=== PATIENT | female | born 1955 | race Caucasian/White ===

== ENCOUNTER 2023-06-20 21:38 | Emergency (ER) | payer MEDICARE, SELFPAY ==
[2023-06-20 21:46] VITALS: BP 104/59; PULSE 81; RESP 18; TEMP 36.7; O2SAT 96; BMI 30.1
--- NOTE | 2023-06-20 23:12 | XRR_ITS ---
PROCEDURE INFORMATION: Exam: XR Lumbosacral Spine Exam date and time: 06/20/2023 11:16 PM Age: 68 years old Clinical indication: Lumbago with sciatica; Patient HX: C/O low back pain radiating down left leg after falling out of bed yesterday. History of siatica. TECHNIQUE: Imaging protocol: Radiologic exam of the lumbosacral spine. Views: 2 or 3 views. Including flexion and extension views. COMPARISON: No relevant prior studies available. FINDINGS: Bones/joints: Low density bone consistent with osteopenia/osteoporosis. Vgnx-cc-[id number] L5-S1 degenerative disc disease and spondylosis. 1 mm anterior spondylolisthesis of L4 on L5. Soft tissues: Unremarkable. XR/XR lumbar spine f/e only [id number] IMPRESSION: 1. Low density bone consistent with osteopenia/osteoporosis. 2. Zfpe-dk-[id number] L5-S1 degenerative disc disease and spondylosis. 3. 1 mm anterior spondylolisthesis of L4 on L5. 4. No instability with flexion and extension.
[2023-06-20] MEDS: ketorolac 30 mg/mL INJ IM (23:20)
[2023-06-20] MEDS: orphenadrine 30 mg/mL Inj 2 mL 60 MG IM (23:21)
[2023-06-20] MEDS: dexamethasone 10 mg/mL INJ IM (23:23)
--- NOTE | 2023-06-20 23:54 | ED_ITS ---
HPI - Back Pain/Injury General: Chief Complaint: Back Pain/Injury Stated Complaint: lower back/leg pain Time Seen by Provider: 06/20/23 22:01 History of Present Illness: Patient is a 68-year-old female that presents to the emergency department with complaints of lumbar back pain radiating into the left buttock and painful urination. Patient states that she recently took a long road trip in which she sat in a car for 11 hours a day. She reports symptoms were slow onset and denies an abrupt event that elicited. Patient has a history of back pain and sciatica and has had a previous UTI which felt similar to what she has now Review of Systems General: Reports: 10 or more systems reviewed and unremarkable except in HPI and below Physical Exam Const: COMMON NORMALS: no acute distress, patient oriented x3 and alert GENERAL APPEARANCE: cooperative ORIENTATION/CONSCIOUSNESS: Yes awake, Yes oriented to person, Yes oriented to place and Yes oriented to time Neck/C-Spine: COMMON NORMALS: full ROM GENERAL: Yes normal visual inspection Lymph: LYMPHATIC: no lymphadenopathy noted Chest: COMMONS NORMALS: normal inspection of the chest Breast/axilla inspection: Yes no chest deformity, asymmetry, normal contours, no nodules, mass es, tenderness Resp: COMMON NORMALS: normal respiratory effort, No retractions and No use of accessory muscles EFFORT & INSPECTION: Yes able to speak in complete sentences and Yes symmetric chest movement Cardio: COMMON NORMALS: regular rate and Peripheral pulses 2+ throughout RATE: regular rate PERIPHERAL PULSES: Peripheral pulses 2+ throughout GI: COMMON NORMALS: Soft to palpation, non-tender and No hepatosplenomegaly present INSPECTION: Yes normal to inspection PALPATION: Yes Soft to palpation and Yes No hepatosplenomegaly present Extremity: COMMON NORMALS: normal to inspection GENERAL: Yes normal exam except as noted Neuro: COMMON NORMALS: patient oriented x3 SENSORIUM/ORIENTATION: Yes alert, Yes oriented to person, Yes oriented to place and Yes oriented to time CRANIAL NERVES: Yes CN normal except as noted Psych: COMMON NORMALS: mental status grossly normal, Normal thought process present, cooperative, activity/motor behavior normal, denies homicidal ideation and denies suicidal ideation THOUGHT PROCESS: Normal thought process present Skin: COMMON NORMALS: no rashes or lesions noted, no wounds and turgor normal GENERAL SKIN EXAM: no rashes or lesions noted and turgor normal Course Vital Signs: Vital signs: Vital Signs Temperature 98.0 F 06/20/23 21:46 Pulse Rate 81 06/20/23 21:46 Respiratory Rate 18 06/20/23 21:46 Blood Pressure 104/59 06/20/23 21:46 Pulse Oximetry 96 06/20/23 21:46 Oxygen Delivery Me thod Room Air 06/20/23 21:46 MDM - Back Pain/Injury Medical Decision Making Patient is a 68-year-old female that presents to the emergency department with lumbar back pain that radiates into the left buttock. Onset of symptoms in the last 3 days traveling to see them back. Differential diagnosis lumbar strain, radiculopathy, urinary tract infection. She underwent urinalysis and XR lumbar spine flexion extension. XR lumbar spine reveals mild to moderate L5-S1 degenerative changes with spondylosis and approximately 1 mm anterolisthesis of L4 on L5. There is no dynamic instability. Urinalysis reveals Trace leukoesterase but there was contaminant and no nitrate, bacteria. Patient's pain did improve with the medication provided. Going to discharge her home with lumbar strain and sciatica. She will go home with Robaxin and a Medrol Dosepak. Patient should follow-up with primary care and return here as needed for new concerning or worsening symptoms Labs Radiology Impressions Lumbar Spine X-Ray 06/20/23 23:12 IMPRESSION: 1. Low density bone consistent with osteopenia/osteoporosis. 2. Zojh-eu-[id number] L5-S1 degenerative disc disease and spondylosis. 3. 1 mm anterior spondylolisthesis of L4 on L5. 4. No instability with flexion and extension. Laboratory Results Urine Color Yellow (Yellow) 06/21/23 00:00 Urine Appearance Clear (CLEAR) 06/21/23 00:00 Urine pH 5 (5-7) 06/21/23 00:00 Ur Specific [place] 1.025 (1.005-1.030) 06/21/23 00:00 Urine Protein Trace (Negative) 06/21/23 00:00 Urine Glucose (UA) Norm (Normal) 06/21/23 00:00 Urine Ketones 1+ (Negative) H 06/21/23 00:00 Urine Blood 3+ (Negative) H 06/21/23 00:00 Urine Nitrate Negative (Negative) 06/21/23 00:00 Urine Bilirubin Neg (Negative) 06/21/23 00:00 Urine Urobilinogen Neg mg/dL (Negative) 06/21/23 00:00 Ur Leukocyte Esterase Trace (Negative) H 06/21/23 00:00 Urine RBC 5-10 /hpf (0-2) H 06/21/23 00:00 Urine WBC 5-10 /hpf (0-5) H 06/21/23 00:00 Ur Squamous Epith Cells 5-10 /hpf (0-5) H 06/21/23 00:00 Amorphous Sediment Not Reportable 06/21/23 00:00 Urine Bacteria None /hpf (NONE) 06/21/23 00:00 All radiology interpretation(s) finalized by discharge Discharge Plan Discharge Patient Disposition: Home Clinical Impression: Strain of lumbar region, Sciatica Condition: Stable Prescriptions: New methocarbamol 500 mg tablet 1,000 mg PO Q6H PRN (Reason: muscle spasm) Qty: 30 0RF methylprednisolone [Medrol (Zac)] 4 mg tablets,dose pack See Rx Instructions .ROUTE .COMPLEX Qty: 21 0RF Rx Instructions: orally per package directions Discharge Orders: Discharge ED (Routine); Ordered 06/21/23 Ordered By: Mitchell Rizzo Discharge Diet: Advance as tolerated Discharge Activity: Resume usual activity Patient Instructions: Low Back Strain (ED), Lower Back Exercises (ED), Core Strengthening Exercises (ED), Pain Management Activity Restrictions/Additional Instructions: Please return to the emergency department for new concerning or worsening symptoms Coding Level of Care Code ED Statistical Machine Servicer for Danilo Church
[2023-06-21 00:29] LABS: Add Urine Culture? No; Add Urine Microscopic? YES; Bilirubin Urine Neg (Negative); Blood Urine 3+ (Negative); Glucose Urine UA Norm (Normal); Ketones Urine 1+ (Negative); Leukocyte Esterase Urine Trace (Negative); Nitrate Urine Negative (Negative); Protein Urine Trace (Negative); Specific Gravity, Urine 1.025 (1.005-1.030); Urine Appearance Clear (CLEAR); Urine Color Yellow (Yellow); Urobilinogen Urine Neg (Negative); pH Urine 5 (5-7)
[2023-06-21 00:42] VITALS: PULSE 67; RESP 16; O2SAT 92
== END 2023-06-21 00:43 | disposition home or self-care (01) ==
PROVIDERS: Emergency Provider Nurse Practitioner
DX: S39.012A Strain of muscle, fascia and tendon of lower back, initial encounter (principal); M54.30 Sciatica, unspecified side; M43.16 Spondylolisthesis, lumbar region; X50.1XXA Overexertion from prolonged static or awkward postures, initial encounter
CPT/HCPCS: 72120; 81001; 96372; 99284; J1100; J1885; J2360

== ENCOUNTER 2023-06-26 09:07 | Emergency (ER) | payer MEDICARE, SELFPAY ==
[2023-06-26 09:17] VITALS: BP 100/65; PULSE 78; RESP 18; TEMP 36.6; O2SAT 92; BMI 29.2
--- NOTE | 2023-06-26 09:43 | CT_ITS ---
WS: [id number] CT ABDOMEN PELVIS TECHNIQUE: Contrast-enhanced CT of the abdomen and pelvis with coronal and sagittal reformatted image s. CLINICAL INFORMATION: abdominal pain, N/V, UTI like symptoms COMPARISON: None. DLP: 718.[address] scans at [facility] use at least one of these dose optimization techniques: automated e xposure control; mA and/or kV adjustment per patient size (includes targeted exams where dose is matc hed to clinical indication); or iterative reconstruction. FINDINGS: Diffuse wall thickening with mucosal hyperenhancement and surrounding induration involving the duoden al C-loop. Findings compatible with duodenitis. Adjacent pancreas is normal in appearance. Fatty atro phy of the pancreas. Normal portal vein and splenic vein. Mild reactive enhancement involving the gal lbladder which is otherwise normal in appearance. Air-fluid levels in the distal stomach and duodenum . Recommend follow-up with endoscopy. Lung bases are well aerated. Diffuse fatty filtration of the liver. Normal portal vein and splenic ve in. Normal spleen. Normal GE junction. Normal caliber abdominal aorta. Portal vein and splenic vein a re patent. Adrenal glands are normal. Normal renal parenchymal enhancement. No hydronephrosis. LEFT p eripelvic cysts. Normal caliber abdominal aorta. Tortuous sigmoid colon is decompressed. Trace free fluid in the pelvis. Prior hysterectomy. Mild RIGH T colonic constipation. No other suspicious findings. IMPRESSION: 1. Findings compatible with acute duodenitis described above with prominent diffuse duodenal thicken ing with mucosal hyperenhancement and surrounding induration. Recommend follow-up with endoscopy. 2. Prior hysterectomy. 3. Mild RIGHT colon and transverse colon constipation. 4. No other acute findings.
--- NOTE | 2023-06-26 09:44 | W.ED.ABDPA2 ---
HPI - Abdominal Pain General: Chief Complaint: Urogenital-Female Stated Complaint: abd pain, NV Time Seen by Provider: 06/26/23 09:09 Source: patient Mode of arrival: ambulatory Limitations: no limitations History of Present Illness: Patient is a 68-year-old female presents to ED today along with her daughter for evaluation of abdominal pain, nausea, vomiting, UTI-like symptoms. Patient states she began having urinary frequency, urgency, hesitancy about 5 or 6 days ago. She was also having some nausea and vomiting. Patient states she was seen at a walk-in clinic and [place] and told it could just be a stomach bug and was discharged with Zofran. Patient states she later returned a few days later (yesterday) and had a UA performed. Daughter states she was placed on ciprofloxacin, Zofran, omeprazole, and Carafate. She is here today for continued nausea and vomiting as well as abdominal pain. She has has not had any doses of the ciprofloxacin. Patient denies alcohol use or excessive NSAID use. MD elicited complaint: abdominal pain Pertinent past history: none Onset (ago): day(s) Pain Consistency: constant Location: Diffuse Severity: moderate Quality: cramping and dull Radiation: none Migration to: no migration Exacerbating factors: eating Relieving factors: nothing Associated Symptoms: Reports dysuria, nausea, vomiting and other (UTI symptoms); Denies change in bowel habits, chills, fever(s), hematochezia, hematuria, hematemesis and melena Review of Systems Const: Denies: fever(s), chills, body aches, fatigue or malaise Card: Denies: chest pain Resp: Denies: dyspnea GI: Reports: abdominal pain, nausea, vomiting and other (UTI symptoms); Denies: hematemesis, change in bowel habits, hematochezia or melena : Reports: dysuria, urinary frequency and urinary urgency; Denies: flank pain, difficulty voiding, urinary hesitancy, hematuria or pelvic pain Musc: Denies: neck pain, back pain, extremity pain or joint pain Skin/Breast: Denies: rash Neuro: Denies: headache(s), numbness in extremities, weakness in extremities or sensory changes Physical Exam Const: COMMON NORMALS: no acute distress, average body habitus, patient oriented x3, no limitations, healthy appearing, alert and well nourished HENMT: COMMON NORMALS: normocephalic and atraumatic HEAD & SCALP: normal to inspection, normocephalic and atraumatic Eye: COMMON NORMALS: no scleral icterus Neck/C-Spine: COMMON NORMALS: no lymphadenopathy Chest: COMMONS NORMALS: normal inspection of the chest Resp: COMMON NORMALS: normal respiratory effort and clear to auscultation bilaterally AUSCULTATION: clear to auscultation bilaterally Cardio: COMMON NORMALS: regular rate and regular rhythm RATE: regular rate RHYTHM: regular rhythm GI: COMMON NORMALS: Normal to inspection, nondistended, normoactive bowel sounds present, Soft to palpation, No hepatosplenomegaly present and no masses INSPECTION: Yes normal to inspection AUSCULTATION: Yes normoactive bowel sounds PALPATION: Yes Soft to palpation, Yes Tenderness to palpation present (GI) (diffusely but more so across lower abdomen), No Guarding due to palpation present (GI), No Rigid due to palpation and Yes No hepatosplenomegaly present : COMMON NORMALS: Yes no CVA tenderness BLADDER/KIDNEY EXAM: Yes no CVA tenderness Back/Pelvis: COMMON NORMALS: no CVA tenderness, thoracic and lumbar spine normal to inspection, no thoracic nor lumbar tenderness and thoraco-lumbar ROM normal Extremity: COMMON NORMALS: normal to inspection GENERAL: Yes normal exam except as noted Neuro: ALMAS COMA SCALE: document GCS findings Almas coma scale eye opening: Spontaneous Almas coma scale verbal response: Orientated [place]mas coma scale motor response: Obey commands [place] coma scale total score: 15 COMMON NORMALS: patient oriented x3, moves all extremities, no focal motor deficits and no sensory deficits noted SENSORIUM/ORIENTATION: Yes alert Skin: COMMON NORMALS: no rashes or lesions noted GENERAL SKIN EXAM: no rashes or lesions noted Course Vital Signs: Vital signs: Vital Signs Temperature 98 F 06/26/23 09:17 Pulse Rate 78 06/26/23 09:17 Respiratory Rate 18 06/26/23 09:17 Blood Pressure 100/65 06/26/23 09:17 Pulse Oximetry 92 06/26/23 09:17 Oxygen Delivery Me thod Room Air 06/26/23 09:17 MDM - Abdominal Pain Medical Decision Making Patient here for abdominal pain, nausea, vomiting, UTI-like symptoms. This is now her third visit to medical facilities for similar symptoms. CT imaging was obtained because of this. Vital signs are stable. She appears in no acute distress. Blood work overall is unremarkable. UA is suspicious for the UTI that she has previously been diagnosed with 3+ blood, 5-10 WBCs, and 1+ bacteria. This will be cultured. She states [facility] also was culturing the urine from yesterday's visit. CT scan essentially unremarkable apart from acute duodenitis. Recommend follow-up with endoscopy. She has already been prescribed Zofran, PPI, and Carafate. Recommend she continue these medications. Requesting something else for nausea in case the Zofran does not seem to work as this morning she vomited up. We will write her for Tariq. We will have case management set her up with general surgery/GI for evaluation for possible EGD. Strict return ED precautions given. Lab Data 06/26/23 09:38 06/26/23 09:38 Labs/Radiology: Laboratory Results WBC 10.34 10^3/uL (3.29-11.43) 06/26/23 09:38 RBC 5.44 10^6/uL (3.85-5.65) 06/26/23 09:38 Hgb 15.70 g/dL (11.27-16.99) 06/26/23 09:38 Hct 47.2 % (36-47) H 06/26/23 09:38 MCV 86.8 fl (85-98) 06/26/23 09:38 MCH 28.9 pg (27-33) 06/26/23 09:38 MCHC 33.3 g/dL (30-55) 06/26/23 09:38 RDW 13.3 % (12.1-15.1) 06/26/23 09:38 Plt Count 302 10^3/cmm (157-399) 06/26/23 09:38 MPV 9.2 fL (7.4-10.4) 06/26/23 09:38 Neut % (Auto) 74.2 % 06/26/23 09:38 Lymph % (Auto) 15.1 % 06/26/23 09:38 [place] % (Auto) 8.6 % 06/26/23 09:38 Eos % (Auto) 0.7 % 06/26/23 09:38 Baso % (Auto) 0.4 % 06/26/23 09:38 Neut # (Auto) 7.68 10^3/uL (1.8-7.7) 06/26/23 09:38 Lymph # (Auto) 1.6 10^3/uL (0.8-4.8) 06/26/23 09:38 [place] # (Auto) 0.9 10^3/uL (0.2-0.9) 06/26/23 09:38 Eos # (Auto) 0.1 10^3/uL (0.0-0.8) 06/26/23 09:38 Baso # (Auto) 0.0 10^3/uL (0.0-0.1) 06/26/23 09:38 Nucleated RBC % (auto) 0 % 06/26/23 09:38 Nucleated RBCs # 0.0 /100WBC 06/26/23 09:38 Sodium 135 mmol/L (136-145) L 06/26/23 09:38 Potassium 4.2 mmol/L (3.5-5.1) 06/26/23 09:38 Chloride 100 mmol/L (98-107) 06/26/23 09:38 Carbon Dioxide 26 mmol/L (22-29) 06/26/23 09:38 Anion Gap 13.2 (5-19) 06/26/23 09:38 BUN 15 mg/dL (8-23) 06/26/23 09:38 Creatinine 0.9 mg/dL (0.5-0.9) 06/26/23 09:38 GFR Calculation 62.3 mL/min (90-130) L 06/26/23 09:38 Glucose 132 mg/dL (65-115) H 06/26/23 09:38 Calculated Osmolality 283 mOsm/kg (285-295) L 06/26/23 09:38 Calcium 10.4 mg/dL (8.5-10.5) 06/26/23 09:38 Total Bilirubin 1.0 mg/dL (0.15-1.2) 06/26/23 09:38 AST 9 U/L (0-32) 06/26/23 09:38 ALT 10 U/L (0-33) 06/26/23 09:38 Alkaline Phosphatase 111 U/L (35-105) H 06/26/23 09:38 Total Protein 6.8 g/dL (6.6-8.7) 06/26/23 09:38 Albumin 3.9 g/dL (3.5-5.2) 06/26/23 09:38 Globulin 2.9 g/dL (1.3-4.6) 06/26/23 09:38 Lipase 17 U/L (13-60) 06/26/23 09:38 Urine Color Yellow (Yellow) 06/26/23 09:53 Urine Appearance Clear (CLEAR) 06/26/23 09:53 Urine pH 5 (5-7) 06/26/23 09:53 Ur Specific [place] 1.020 (1.005-1.030) 06/26/23 09:53 Urine Protein Trace (Negative) 06/26/23 09:53 Urine Glucose (UA) Norm (Normal) 06/26/23 09:53 Urine Ketones 1+ (Negative) H 06/26/23 09:53 Urine Blood 3+ (Negative) H 06/26/23 09:53 Urine Nitrate Negative (Negative) 06/26/23 09:53 Urine Bilirubin Neg (Negative) 06/26/23 09:53 Urine Urobilinogen Neg mg/dL (Negative) 06/26/23 09:53 Ur Leukocyte Esterase 1+ (Negative) H 06/26/23 09:53 Urine RBC 5-10 /hpf (0-2) H 06/26/23 09:53 Urine WBC 5-10 /hpf (0-5) H 06/26/23 09:53 Ur Squamous Epith Cells 0-4 /hpf (0-5) H 06/26/23 09:53 Amorphous Sediment Not Reportable 06/26/23 09:53 Urine Bacteria 1+ /hpf (NONE) H 06/26/23 09:53 Urine Mucus 1+ /hpf 06/26/23 09:53 All radiology interpretation(s) finalized by discharge Discharge Plan Discharge Patient Disposition: Home Clinical Impression: Duodenitis Urinary tract infection Qualifiers: Urinary tract infection type: acute cystitis Hematuria presence: with hematuria Qualified Code(s): N30.01 - Acute cystitis with hematuria Condition: Stable Prescriptions: New Reglan 10 mg tablet 10 mg PO Q6H 7 Days Qty: 15 0RF No Action methocarbamol 500 mg tablet 1,000 mg PO Q6H PRN (Reason: muscle spasm) Qty: 30 0RF methylprednisolone [Medrol (Zac)] 4 mg tablets,dose pack See Rx Instructions .ROUTE .COMPLEX Qty: 21 0RF Rx Instructions: orally per package directions Carafate 1 gram Tablet 1 g PO QID Rx Instructions: for 10 days (rx filled 06/25/23) Cipro 500 mg Tablet 500 mg PO Q12H Rx Instructions: for 10 days (rx filled 06/25/23) Tylenol Ex Str Rapid Release 500 mg Tablet 1,000 mg PO Q6H PRN (Reason: Pain) Prilosec 20 mg Capsule,Delayed Release(Dr/Ec) 20 mg PO DAILY Zofran ODT 4 mg Tablet,Disintegrating 4 mg PO Q8H PRN (Reason: Nausea And Vomiting) Discharge Orders: Discharge ED (Routine); Ordered 06/26/23 Ordered By: Juanis Stevens Patient Instructions: Duodenitis (ED) Activity Restrictions/Additional Instructions: As we discussed please follow-up with your primary care provider next week as scheduled. We will get you set up with a GI provider/general surgeon for further evaluation of your duodenitis and possible need for an EGD. Coding Level of Care Code ED [employer] Youth Supervisor for Danilo Church
[2023-06-26 09:46] LABS: Basophils % 0.4 %; Eosinophils # 0.1 10^3/uL (0.0-0.8); Eosinophils % 0.7 %; Hematocrit 47.2 % (36-47); Lymphocytes # 1.6 10^3/uL (0.8-4.8); Lymphocytes % 15.1 %; Mean Corpuscular HGB Conc 33.3 g/dL (30-55); Mean Corpuscular Hemoglobin 28.9 pg (27-33); Mean Corpuscular Volume 86.8 fl (85-98); Mean Platelet Volume 9.2 fL (7.4-10.4); Monocytes # 0.9 10^3/uL (0.2-0.9); Monocytes % 8.6 %; Neutrophils # 7.68 10^3/uL (1.8-7.7); Neutrophils % 74.2 %; Nucleated Red Blood Cells % 0 %; Platelet Count 302 10^3/cmm (157-399); Red Blood Count 5.44 10^6/uL (3.85-5.65); Red Cell Distribution Width 13.3 % (12.1-15.1); White Blood Count 10.34 10^3/uL (3.29-11.43)
[2023-06-26 10:03] LABS: Alanine Aminotransferase 10 U/L (0-33); Albumin Level 3.9 g/dL (3.5-5.2); Alkaline Phosphatase 111 U/L (35-105); Anion Gap 13.2 (5-19); Aspartate Amino Transferase 9 U/L (0-32); Blood Urea Nitrogen 15 mg/dL (8-23); Calcium 10.4 mg/dL (8.5-10.5); Carbon Dioxide 26 mmol/L (22-29); Chloride 100 mmol/L (98-107); Globulin 2.9 g/dL (1.3-4.6); Glomerular Filtration Rate 62.3 mL/min (90-130); Glucose 132 mg/dL (65-115); Lipase 17 U/L (13-60); Osmolality Calculated 283 mOsm/kg (285-295); Potassium 4.2 mmol/L (3.5-5.1); Sodium 135 mmol/L (136-145); Total Protein 6.8 g/dL (6.6-8.7)
--- NOTE | 2023-06-26 10:03 | PC.PHAR ---
pt brought in medication bottles-pt and pts daughter verified pts medications-pts daughter states the pt dced lipitor ext shows last filled 08/12/22 90d/s 40mg hs-pt and pts daughter states the pt stop taking medrol ayanna on 06/23/23 rx written 06/21/23 and robaxin 500mg 1000mg q6h prn stop taking on thursday06/22/23 rx written on 06/21/23-pt states she has no inhalers states she doesnt use it ext shows last filled 10/14/22 albuterol inhaler 2p q6h prn-pt states she is no longer taking any otc medications except for the tylenol prn
[2023-06-26] MEDS: iohexol 350 mg/mL 500 mL Btl (per mL) IV (10:15)
[2023-06-26 10:34] LABS: Urine Appearance Clear (CLEAR); Urine Color Yellow (Yellow); pH Urine 5 (5-7)
[2023-06-26 10:35] LABS: Add Urine Microscopic? YES; Bilirubin Urine Neg (Negative); Blood Urine 3+ (Negative); Glucose Urine UA Norm (Normal); Ketones Urine 1+ (Negative); Leukocyte Esterase Urine 1+ (Negative); Nitrate Urine Negative (Negative); Protein Urine Trace (Negative); Urobilinogen Urine Neg (Negative)
[2023-06-26 10:37] LABS: Add Urine Culture? No; Bacteria Urine 1+ /hpf; Mucus Urine 1+ /hpf; Squamous Epithelial Cell Urine 0-4 /hpf (0-5)
[2023-06-26] MEDS: sodium chloride 0.9% 1,000 ML 999 ML IV (10:38)
--- NOTE | 2023-06-26 15:07 | DCPLANNER ---
Message sent to Gen Surg for follow up : evaluation for EGD, duodenitis.
== END 2023-06-26 11:27 | disposition home or self-care (01) ==
PROVIDERS: Emergency Provider Physician Assistant
DX: K29.80 Duodenitis without bleeding (principal); N30.01 Acute cystitis with hematuria
CPT/HCPCS: 36415; 74177; 80053; 81001; 83690; 85025; 87086; 99285; J7030; Q9967